=== PATIENT | male | born 1995 | race Caucasian/White ===

== ENCOUNTER 2017-08-17 17:54 | Emergency (ER) | payer BC, OTHER ==
[2017-08-17] MEDS ORDERED: Ketorolac Tromethamine 30 MG/ML VIAL ONE (18:08)
[2017-08-17 18:34] LABS: #Basophils 0.2 thou/uL (0.0-0.2); #Eosinphils 0.2 thou/uL (0.0-0.7); #Lymphocytes 4.4 thou/uL (1.20-3.40); #Monocytes 0.7 thou/uL (0.11-0.59); #Neutrophils 4.5 thou/uL (1.40-6.50); %Basophils 1.8 % (0.0-1.0); %Eosinophils 2.5 % (0.0-10.0); %Lymphocytes 43.6 % (28.0-48.0); %Monocytes 7.4 % (0.0-4.0); %Neutrophils 44.8 % (31.0-61.0); Hemoglobin 15.4 g/dL (14.0-18.0); Mean Corpuscular HGB CONC 34.3 g/dL (32.0-36.0); Mean Corpuscular Hemoglobin 28.8 pg (25.0-35.0); Mean Corpuscular Volume 84.1 fl (77.0-87.0); Mean Platelet Volume 6.8 fL (7.4-10.4); Platelet Count 380 thou/uL (130-400); RBC Distribution Width 11.6 % (11.5-14.5); Red Blood Cell (RBC) Count 5.33 mill/uL (4.00-5.20)
[2017-08-17 18:40] LABS: ALT (SGPT) 34 U/L (8-55); AST (SGOT) 22 U/L (5-34); Albumin 4.2 g/dL (3.5-5.0); Alkaline Phosphatase 62 U/L (Less than 750); Anion Gap 14 mmol/L (10-20); BUN (Urea Nitrogen) 13 mg/dL (8.9-20.6); Bilirubin, Total 0.4 mg/dL (0.2-1.2); Calc. Creatinine Clearance 0 mL/min (70-130); Calcium 9.4 mg/dL (7.8-10.44); Carbon Dioxide 26 mmol/L (22-29); Chloride 102 mmol/L (98-107); Estimated GFR-MDRD Greater than 90; Globulin 3.4 g/dL (2.4-3.5); Glucose 99 mg/dL (70-105); Lipase 16 U/L (8-78); Potassium 3.9 mmol/L (3.5-5.1); Protein, Total 7.6 g/dL (6.0-8.3); Sodium 138 mmol/L (136-145)
[2017-08-17 19:50] LABS: Bilirubin Negative (Negative); Blood, Urine Moderate (Negative); Clarity Clear (Clear); Glucose, Urine (Dipstick) Negative (Negative); Leukocyte Negative (Negative); Nitrite Negative (Negative); Protein, Urine (Dipstick) Negative (Neg-Trace); Specific Gravity, Urine 1.015 (1.005-1.030); Urobilinogen 0.2 mg/dL (0.2-1.0)
[2017-08-17 19:57] LABS: Bacteria/HPF Rare-Few HPF (None Seen); Squamous Epithelial None Seen HPF (0-3); WBC/HPF None Seen HPF (0-3)
--- NOTE | 2017-08-17 20:06 | CT ---
CT OF ABDOMEN AND PELVIS PERFORMED WITHOUT CONTRAST ENHANCEMENT: 08/17/17 HISTORY: Right sided abdomen pain, nausea and vomiting. The lung bases are clear. There is some fatty change of the liver. The spleen is within normal limits of size. pancreas and gallbladder regions appear unremarkable. Right and left adrenal glands and right and left kidneys are normal in size. No renal calculi or evid ence of obstruction. No significant periaortic adenopathy. There are a few scattered nonspecific mese nteric lymph nodes. The appendix is retrocecal in location and normal in size. CT OF PELVIS PERFORMED WITHOUT CONTRAST ENHANCEMENT: No adenopathy or mass. The bladder is not well distended. There is questionable wall thickening versu s underdistention. IMPRESSION: No evidence of renal or ureteral calculi. Normal appendix. Questionable bladder wall thickening versu s underdistention. Clinical correlation as to any cystitis type symptom is recommended. POS: [facility]
== END 2017-08-17 20:30 | disposition home or self-care (01) ==
LOC: SCSER 17:54
DX: R10.9 Unspecified abdominal pain (principal); G40.909 Epilepsy, unspecified, not intractable, without status epilepticus; J45.909 Unspecified asthma, uncomplicated; K21.9 Gastro-esophageal reflux disease without esophagitis; Z79.899 Other long term (current) drug therapy
CPT/HCPCS: 74176; 80053; 81003; 81015; 83690; 85025; 96361; 96374; J1885

== ENCOUNTER 2018-09-29 17:00 | Outpatient (CLI) | payer OTHER | END 2018-09-29 17:01 | disposition home or self-care (01) | LOC: SLEEPLAB 17:00 | PROVIDERS: ATTEND Family Medicine | DX: G47.33 Obstructive sleep apnea (adult) (pediatric) (principal); R51 Headache; K21.9 Gastro-esophageal reflux disease without esophagitis; E66.9 Obesity, unspecified; F90.9 Attention-deficit hyperactivity disorder, unspecified type | CPT/HCPCS: 95806 ==

== ENCOUNTER 2022-01-23 13:18 | Outpatient (CLI) | payer BC | END 2022-01-23 13:19 | disposition home or self-care (01) | LOC: EEG 13:18 | PROVIDERS: ATTEND Psychiatry & Neurology Neurology | DX: Z09 Encounter for follow-up examination after completed treatment for conditions other than malignant neoplasm (principal); Z86.69 Personal history of other diseases of the nervous system and sense organs | CPT/HCPCS: 95816; 95957 ==

== ENCOUNTER 2022-12-29 08:25 | Outpatient (CLI) | payer BC | END 2022-12-29 08:26 | disposition home or self-care (01) | PROVIDERS: ATTEND Family Medicine | DX: Z74.09 Other reduced mobility (principal) ==